=== PATIENT | male | born 1985 | race Caucasian/White ===

== ENCOUNTER 2017-05-18 19:32 | Inpatient (IN) ==
--- NOTE | 2017-05-18 19:40 | Emergency Department Note ---
Disposition Clinical Impression: Chest pain Qualifiers: Chest pain type: unspecified Qualified Code(s): R07.9 - Chest pain, unspecified Disposition: Admitted As Inpatient Condition: Good Referrals: NO,PCP [Primary Care Provider] - Forms: ED Satisfaction Letter Time of Disposition: 20:48 Chest Pain HPI - General Chief Complaint: ED Chest Pain Stated Complaint: Chest Pain Time Seen by Provider: 05/18/17 19:36 Source: patient Mode of arrival: ambulatory Limitations: no limitations Vital Signs Reviewed: Yes Nursing Notes Reviewed: Yes - History of Present Illness HPI Narrative: 32-year-old who presented to the [place] this morning with midsternal chest pain that began about 10:30 AM so sedated nausea sweating and mild shortness of breath he was given an aspirin at the [place]. The chest pain was described as nonpleuritic and nonradiating Kasandra fullness burning type sensation over the lower mid sternum last about 15 minutes and then resolves. It has a history of multiple family members having coronary artery disease and the grandfather had premature coronary artery disease at age 40. No family history of PE. Patient does have risk factors of hypercholesterolemia hypertension stopped smoking a couple years ago. Patient had a workup at the [place]. Initial EKG showed no evidence of STEMI. Pt complaint: chest pain Onset (ago): Just [employer]PER[employer] Duration: intermittent Onset: during rest Pain Location: substernal, left chest Severity: moderate Quality: tightness, aching Pain Radiation: none Improves with: rest Worsens with: nothing Associated symptoms: Reports: diaphoresis Treatments prior to arrival chest pain: aspirin - Related Data Home Medications Medication Instructions Recorded Confirmed Metoprolol [Lopressor] 100 mg PO BID 08/23/16 08/23/16 Sildenafil Citrate [Viagra] 50 mg PO AD 08/23/16 08/23/16 Previous Rx's Medication Instructions Recorded Aspirin Enteric Coated [Aspirin EC] 81 mg PO DAILY #60 tablet. 08/30/16 Levofloxacin [Levaquin] 750 mg PO DAILY #3 tablet 08/30/16 Oxycodone HCl/Acetaminophen 1 each PO Q6HR PRN #20 tablet 08/30/16 [Endocet 5-325 Tablet] amLODIPine [Norvasc] 5 mg PO DAILY #30 tablet 08/30/16 predniSONE [PredniSONE] See Taper PO DAILY #12 tablet 08/30/16 Allergies Allergy/AdvReac Type Severity Reaction Status Date / Time IVP dye Allergy See Uncoded 08/23/16 13:38 Comments Constitutional: Denies: fever, chills, weakness, weight change Eyes: Denies: eye pain, eye discharge, vision change ENT ED: Denies: ear pain, throat pain, dental pain, hearing loss, epistaxis, congestion, dysphagia Cardiovascular: Reports: chest pain. Denies: palpitations, dyspnea on exertion , edema, syncope Respiratory: Denies: cough, dyspnea, wheezes, hemoptysis, stridor Gastrointestinal: Denies: abdominal pain, nausea, vomiting, diarrhea, constipation, hematemesis, melena, hematochezia Genitourinary: Denies: urgency, dysuria, frequency, hematuria Musculoskeletal: Denies: back pain, neck pain, arthralgia, myalgia Integumentary: Denies: rash, abrasion, lesions Neurological: Denies: headache, weakness, numbness, paresthesias, confusion, abnormal gait, vertigo Psychiatric: Denies: anxiety, depression, suicidal thoughts, homicidal thoughts , auditory hallucinations, visual hallucinations Endocrine: Denies: fatigue Hematological/Lymphatic: Denies: easy bleeding, easy bruising Allergic/Immunologic: Denies: facial swelling, urticaria Chest Pain PMH - Past Medical History Medical history: Reports: hypertension, other Surgical history: Reports: non-contributory Psychiatric history: Reports: no psych history - Social History Smoking Status: Former smoker Alcohol use: Reports: none Drug use: Reports: none Physical Exam - General Limitations: no limitations General appearance: alert, in no apparent distress - Head Head exam: atraumatic, normocephalic, normal inspection - Eye Eye exam: Present: normal appearance, PERRL, EOMI - ENT ENT exam: normal exam, normal oropharynx, mucous membranes moist - Neck Neck exam: Present: normal inspection, full ROM, trachea midline - Respiratory Respiratory exam: Present: normal lung sounds bilaterally - Cardiovascular Cardiovascular exam: Present: regular rate, normal rhythm, normal heart sounds - Abdominal Exam Abdominal exam: Present: soft, Non-Tender. Absent: tenderness, distention, guarding, rebound, rigidity - Extremities Exam Extremities exam: Present: normal inspection, full ROM. Absent: tenderness, pedal edema - Expanded Lower Extremity Exam Neurovascular/Tendon exam: Absent: motor deficit, sensory deficit, tendon deficit Gait: observed and normal - Back Exam Back exam: Present: normal inspection, full ROM. Absent: tenderness - Neurological Exam Neurological exam: Present: alert, oriented X3 - Psychiatric Psychiatric exam: Present: normal affect, normal mood - Skin Skin exam: Present: warm, dry, intact, normal color Course - Reevaluation(s) Reevaluation #1: Chest x-ray at the [place] no definitive acute cardiopulmonary disease. Lab work showed a sodium of 139 potassium 3.6 chloride 101 carbon monoxide 25 glucose 22 BNI Chon 1.07 calcium of 8.9 liver function studies show an elevation in AST 135 ALTs of 201 CPK was elevated at 299 his troponin was less than 0.015. His cholesterol was elevated at 228 on February 27, 2016. Triglycerides were elevated at 891. His HDL was 27. Time: 19:41 Reevaluation #2: 32-year-old with multiple risk factors including relative having MS at 39 years old comes in complaining of chest pressure was diaphoretic. Patient was seen at the [place] workup at that point was negative. He admitted for rule out. Time: 20:47 - Consultations Consultation #1: Discussed with , admit. Time: 20:47 Vital Signs Temperature 98.6 F 05/18/17 19:34 Pulse Rate 88 05/18/17 19:34 Respiratory Rate 16 05/18/17 19:34 Blood Pressure 169/99 05/18/17 19:34 O2 Sat by Pulse Oximetry 97 05/18/17 19:34 Temperature 98.6 F 05/18/17 19:34 Pulse Rate 83 05/18/17 20:41 Respiratory Rate 18 05/18/17 20:41 Blood Pressure 158/95 05/18/17 20:41 O2 Sat by Pulse Oximetry 96 05/18/17 20:41 Oxygen Delivery Oxygen Delivery Room Air Chest Pain - EKG Data EKG attestation: Yes I reviewed and interpreted this EKG. EKG shows normal: sinus rhythm Rate: normal Rhythm: NSR [place]/QRS: IVCD Interpretation: no acute changes Heart Score - Score History: Moderately Suspicious EKG: Non Specific repolarisation Disturbance Age: Less than 45 Risk Factors: Equal/Greater than 3 risk factor or history of atherosclerotic disease Troponin: Less than normal limit HEART Score Total: 4
[2017-05-19] MEDS ORDERED: Regadenoson 0.4 MG/5 ML SYRINGE IVP ONE (07:15)
[2017-05-19 07:32] LABS: Basophils % 0.5 %; Eosinophils # 0.2 K/mcL (0.0-0.6); Eosinophils % 2.9 %; Hematocrit 44.3 % (37.5-50.1); Hemoglobin 15.1 g/dL (12.9-16.9); Immature Granulocytes % 1.2 % (0-4); Lymphocytes # 1.7 K/mcL (0.6-4.6); Lymphocytes % 22.9 %; Mean Corpuscular HGB Conc 34.1 g/dL (31.6-35.5); Mean Corpuscular Hemoglobin 31.7 pg (28.0-33.3); Mean Corpuscular Volume 92.9 fL (83.0-100.0); Mean Platelet Volume 9.3 fL (9.4-12.4); Monocytes # 0.7 K/mcL (0.0-1.3); Monocytes % 9.1 %; Neutrophils # 4.8 K/mcL (1.6-8.9); Platelet Count 192 K/mcL (140-400); Red Blood Count 4.77 M/mcL (4.19-5.50); Red Cell Distribution Width 12.9 % (11.5-14.5); Segmented Neutrophils % 63.4 %
[2017-05-19 07:53] LABS: Alanine Aminotransferase 169 Units/L (0-55); Albumin 3.5 g/dL (3.5-5.0); Albumin/Globulin Ratio 0.9 (1.1-2.2); Alkaline Phosphatase 30 Units/L (38-126); Aspartate Amino Transferase 119 Units/L (5-34); BUN/Creatinine Ratio 10 (6-26); Bilirubin,Total 0.6 mg/dL (0.2-1.2); Blood Urea Nitrogen 9 mg/dL (8-26); Calcium 9.2 mg/dL (8.6-10.8); Carbon Dioxide 23 mEq/L (19-29); Chloride 103 mEq/L (98-109); Chol/HDL Ratio 10.5 (0-4.9); Cholesterol 274 mg/dL (< 200); Globulin 3.9 g/dL (2.4-3.5); Glucose 113 mg/dL (70-99); HDL Cholesterol 26 mg/dL (40-59); Magnesium 2.1 mg/dL (1.6-2.6); Osmolality,Calculated 281 (280-300); Potassium 4.2 mEq/L (3.5-4.5); Sodium 136 mEq/L (136-145); Total Protein 7.4 g/dL (6.0-8.3); Triglycerides 988 mg/dL (< 150); eGFR For African Americans > 60 (> 60); eGFR For Non-African Americans > 60 (> 60)
[2017-05-19] MEDS ORDERED: amLODIPine 5 MG TABLET PO SCH (09:00)
[2017-05-19] MEDS: Metoprolol 100 MG TABLET PO SCH ×2 (10:41→20:47)
[2017-05-19] MEDS: Famotidine 20 MG TABLET PO SCH ×2 (10:41→17:01)
--- NOTE | 2017-05-19 14:09 | Electrocardiograph Report ---
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
[2017-05-19] MEDS: *HR* Heparin 5,000 UNIT/ML VIAL SQ SCH (17:01)
[2017-05-19] MEDS ORDERED: Nitroglycerin 0.4 MG TAB.SUBL SL PRN (19:27)
--- NOTE | 2017-05-19 19:29 | Event Note ---
Date of Encounter: 05/19/17 Time of Encounter: 16:30 Patient seen and examined. On examination, patient ambulating around his room. He denies chest pain or shortness of breath. Awaiting the second part of the stress test tomorrow. Patient stating at times, his chest will feel tight and uncomfortable but he denies overt pain. Will add nitroglycerin for chest pain. Regarding his labs thus far, marked hypertriglyceridemia noted with triglycerides of 988. He is only on [place] threes, no listed drug allergies, we will add a statin to his regimen. Mildly elevated LFTs-Will trend and check a lipase- rule out pancreatitis given his TRIG levels. Patient denies abdominal pain and has tolerated a regular diet today. He is on a full strength aspirin twice a day. He is also on a beta mya. Troponins negative 3. We will await second part of the stress test.
[2017-05-20] MEDS: *HR* Heparin 5,000 UNIT/ML VIAL SQ SCH (05:48)
[2017-05-20 05:59] LABS: INR 1.2; Prothrombin Time 12.5 Seconds (9.4-12.1)
[2017-05-20 06:02] LABS: Basophils # 0.1 K/mcL (0.0-0.2); Basophils % 0.8 %; Eosinophils # 0.2 K/mcL (0.0-0.6); Eosinophils % 3.7 %; Hemoglobin 15.1 g/dL (12.9-16.9); Immature Granulocytes % 1.4 % (0-4); Lymphocytes % 31.4 %; Mean Corpuscular HGB Conc 34.3 g/dL (31.6-35.5); Mean Corpuscular Hemoglobin 32.4 pg (28.0-33.3); Mean Corpuscular Volume 94.4 fL (83.0-100.0); Mean Platelet Volume 9.6 fL (9.4-12.4); Monocytes # 0.7 K/mcL (0.0-1.3); Monocytes % 10.6 %; Neutrophils # 3.4 K/mcL (1.6-8.9); Platelet Count 188 K/mcL (140-400); Red Blood Count 4.66 M/mcL (4.19-5.50); Red Cell Distribution Width 13.2 % (11.5-14.5); Segmented Neutrophils % 52.1 %
[2017-05-20 06:09] LABS: Alanine Aminotransferase 179 Units/L (0-55); Albumin 3.6 g/dL (3.5-5.0); Albumin/Globulin Ratio 0.9 (1.1-2.2); Alkaline Phosphatase 28 Units/L (38-126); Aspartate Amino Transferase 120 Units/L (5-34); BUN/Creatinine Ratio 10 (6-26); Bilirubin,Direct 0.1 mg/dL (0.0-0.5); Bilirubin,Indirect 0.5 mg/dL (0.0-1.2); Bilirubin,Total 0.6 mg/dL (0.2-1.2); Blood Urea Nitrogen 9 mg/dL (8-26); Calcium 9.3 mg/dL (8.6-10.8); Carbon Dioxide 26 mEq/L (19-29); Chloride 103 mEq/L (98-109); Globulin 3.8 g/dL (2.4-3.5); Glucose 105 mg/dL (70-99); Lipase 52 Units/L (8-78); Magnesium 2.5 mg/dL (1.6-2.6); Osmolality,Calculated 285 (280-300); Potassium 4.2 mEq/L (3.5-4.5); Sodium 138 mEq/L (136-145); Total Protein 7.4 g/dL (6.0-8.3); eGFR For African Americans > 60 (> 60); eGFR For Non-African Americans > 60 (> 60)
--- NOTE | 2017-05-20 10:26 | Nuclear Medicine Stress Report ---
Regadenoson Nuclear 2 day Name: Tapan Tian Date of Study: 05/19/2017 Date: 1985 Ht: 72.0 in Medical Record#: [id number] Age: 32 Wt: 300.0 lb Gender: Male Order #: [id number] Location: [facility] Room: [facility] Supervising Provider: Jose M Saucedo CNP Reading Physician: Camilo Tian DO, FACC, FASNC Ordering Physician: Margaret Muniz CNP Primary Care Physician: [facility] Stress Technologist: Diego Terry, DIVISION [employer], CCT Promotion Writer: Nicole Johnson Indications: Chest Pain Impression: Pharmacologic stress ECG is negative for ischemia at level of heart rate achieved. Gated EF = 65%. Small sized, mild intensity, fixed apical inferior defect. Wall motion is normal. These findings are c/w artifact. Perfusion imaging was negative for ischemia or infarct. History: Hypertension Hypercholesteremia Stress Test Summary: Stress Test Type: Pharmacologic Regadenoson 0.4mg/5ml given IV Baseline Information: Initial Heart Rate: 91 Blood Pressure: 134/78 Stress Information: Stress Time: 4 min 00 sec Test Terminated Due to (primary): Completed Protocol Maximum Blood Pressure: 140/84 Maximum Heart Rate: 113 Percent Maximum Heart Rate Achieved: 60 Double Product: 15,820 METS Reached: 1 Symptoms: Nausea, [place]ushing Nuclear Summary: SPECT myocardial perfusion imaging using Tc99m Sestamibi given intravenously was performed at rest and following cardiac stress testing. The resting images were obtained following initial dose of 30.5 mCi. Following stress an additional dose of 31.7 mCi was given at peak exercise or 30 seconds post regadenoson infusion. Medication Given: Time Medication Dose Units Route Findings: Stress Note * Resting ECG demonstrated normal sinus rhythm. * No baseline arrhythmias were noted. * Pharmacologic stress ECG is negative for ischemia at level of heart rate achieved. * Occasional PVCs noted during stress. Hemodynamic responses * Normal hemodynamic responses to pharmacologic stress. Study Quality * Study quality is average. Gated EF % * Gated EF = 65%. Left Ventricle * The left ventricle is dilated. * LVEDV = 182 mL. NORMALS * Normal wall motion. Inferior Perfusion Rest * The apical inferior segment shows a mild reduction in perfusion. Inferior Perfusion Stress * The apical inferior segment shows a mild reduction in perfusion. TID * No evidence of transient ischemic dilatation. TID ratio * TID ratio = 1.08. Lung Uptake * There is no evidence of increase lung uptake. Updated by Camilo Tian DO, FACEvelin, KIM, FASDAVID on 05/20/2017 10:22:36 AM electronically signed on 05/20/2017 10:23:15 AM with status of Final
[2017-05-20 11:02] VITALS: BP 124/74
--- NOTE | 2017-05-20 11:12 | Discharge Summary ---
Date of Encounter: 05/20/17 Time of Encounter: 10:15 - Discharge Diagnosis (1) Chest pain Priority: Primary Status: Resolved Comments: Patient has denied chest pain or shortness of breath throughout this admission. trops neg; stress test neg. ACS ruled out (2) Anxiety Priority: Secondary Status: Chronic Comments: mood and affect stable while admitted (3) Former smoker Priority: Secondary Status: Resolved (4) DVT prophylaxis Priority: Primary Status: Acute Comments: Subcutaneous heparin while admitted (5) Hypertension Priority: Secondary Status: Chronic Comments: controlled; followup outpatient (6) Morbid obesity with BMI of 40.0-44.9, adult Priority: Secondary Status: Chronic (7) Pill esophagitis Priority: Primary Status: Suspected - Discharge Medications Prescriptions: Atorvastatin [Lipitor] 40 mg PO HS #30 tab Famotidine [Pepcid] 20 mg PO BID #60 tab Home Medications: Metoprolol [Lopressor] 100 mg PO BID 08/23/16 [History] amLODIPine [Norvasc] 5 mg PO DAILY #30 tablet 08/30/16 [Rx] Aspirin 325 mg PO BID 05/18/17 [History] Melatonin [Melatin] 3 mg PO HS 05/18/17 [History] Multivitamin-Min/Iron/FA/Vit K [Multi-Day Plus Minerals Tablet] 1 each PO DAILY 05/18/17 [History] [place]-3/Dha/Epa/Fish Oil [Fish Oil 1,000 mg Softgel] 1,000 mg PO BID 05/18/17 [ History] Atorvastatin [Lipitor] 40 mg PO HS #30 tab 05/20/17 [Rx] Famotidine [Pepcid] 20 mg PO BID #60 tab 05/20/17 [Rx] Allergies/Adverse Reactions: Allergies IVP dye Allergy (Uncoded 08/23/16 13:38) See Comments Feels like he's on fire on the inside Date of admission: 05/20/17 08:08 Primary care physician: PCP NO Consults: 05/20/17 10:51 Consult to Commercial Loan Underwriter [CONS] Routine Reason for SW Consult: transportation needs Discharging clinician: Margaret Muniz Anticipated date of discharge: 05/20/17 - Patient Status Disposition: Home, Self-Care Condition: Good Functional capacity at discharge: independent ambulation Overall status at discharge: patient is back to baseline - Discharge Instructions Follow Up With: [facility],PCP [Non-Partnered Physician] - 05/30/17 10:45 am Additional Instructions: Follow-up with primary care provider as scheduled - Diet and Activity Activity: increase activity as tolerated Diet: low fat, low cholesterol, low salt diet Hospital course: Mr. Tian is a 32 year old male with past medical history of hypertension, hyperlipidemia, RA, GERD, history of spontaneous pneumothorax, morbid obesity, former tobacco abuse. Patient presented to the emergency department after being sent from the [place] with a chief complaint of mid sternally located chest pain that began on the morning of presentation and was associated with nausea, sweating, and mild shortness of breath. He was given aspirin at the [place] and transferred to [facility]. Patient stated pain was nonpleuritic and did not radiate and felt more of a fullness and burning type sensation over his lower mid sternal area that lasted approximately 15 minutes then resolved. Workup in the emergency department unremarkable. Patient was admitted to the hospitalist service for further evaluation and management. Troponins negative 3. Patient had a 2 day nuclear stress test that was negative for ischemia or infarct and revealed an ejection fraction of 65%. Patient denied chest pain or shortness of breath throughout this admission. ACS ruled out. Just prior to having this sensation, patient had taken a multivitamin so possible causative factor could be pill esophagitis. He was started on Pepcid twice a day. Regarding his labs , marked hypertriglyceridemia noted with triglycerides of 988. He is only on [place] threes, no listed drug allergies, so a statin was added to his regimen. Mildly elevated LFTs that remained stable and he tolerated a regular diet while admitted and denied abdominal pain. Bilirubin and lipase levels normal. He was discharged home in stable condition with close outpatient follow-up recommended. Regadenosen nuclear 2 day impression: Pharmacologic stress ECG is negative for ischemia at level of heart rate achieved. Gated ejection fraction 65%. Small sized, mild intensity, fixed apical inferior defect. Wall motion is normal. These findings are consistent with artifact. Perfusion imaging was negative for ischemia or infarct. - Time Spent with Patient Total time spent providing and/or coordinating discharge services: - Constitutional Vitals: Temp Pulse Resp BP Pulse Ox 97.7 F 81 16 124/74 93 05/20/17 10:59 05/20/17 10:59 05/20/17 10:59 05/20/17 10:59 05/20/17 10:59 General appearance: Present: A&O X 3, morbidly obese, pleasant, no acute distress, answers questions appropriately - Head Head exam: Present: atraumatic, normocephalic - Eye Eye exam: Present: PERRL, conjuntiva pink, sclera anicteric Pupils: Present: PERRL - Neck Neck exam general surgery: Present: supple, trachea midline. Absent: lymphadenopathy - Respiratory Respiratory exam: Present: CTAB. Absent: accessory muscle use, rales, respiratory distress, rhonchi, wheezes - Cardiovascular Cardiovascular exam: Present: RRR, +S1, +S2. Absent: diastolic murmur, gallop, rubs, systolic murmur - GI/Abdominal GI/Abdominal exam: Present: normal bowel sounds, soft, no peritoneal signs. Absent: distended, tenderness - Extremities Exam Extremities exam: Present: warm, radial pulses palpable and symetrical. Absent : calf tenderness, cyanotic, pedal edema - Neurological Exam Neurological exam: Present: alert, CN II-XII intact, normal gait, oriented X3, no focal deficits, strengths equal and symetr throughout. Absent: pronater drift, facial droop, speech deficit - Skin Skin exam: Present: dry, intact, normal color, warm
== END 2017-05-20 13:09 | disposition home or self-care (01) | DRG 313 ==
LOC: 3BNU 19:32 → EMEROO 19:32 → INTOOBSV 21:33 → 3BNU 21:33
PROVIDERS: ADMIT Internal Medicine; ATTEND Nurse Practitioner Family